=== PATIENT | female | born 1950 | race Caucasian/White ===

== ENCOUNTER 2020-07-17 20:46 | Emergency (ER) | payer BC ==
[~2020-07-17] VITALS: Ht 160 cm; Wt 75.7 kg
[2020-07-17 20:59] VITALS: Ht 160 cm; Wt 75.7 kg
[2020-07-17 23:40] VITALS: BP 144/88
== END 2020-07-17 23:40 | disposition home or self-care (01) ==
LOC: ED 20:46
DX: T83.018A Breakdown (mechanical) of other urinary catheter, initial encounter (principal); I10 Essential (primary) hypertension; E78.00 Pure hypercholesterolemia, unspecified; F41.9 Anxiety disorder, unspecified